=== PATIENT | male | born 2000 | race Caucasian/White ===

== ENCOUNTER → 2024-06-14 14:20 | Outpatient (REF) | payer BC, SELFPAY ==
[2024-06-14 15:47] LABS: % Basophils 0.5 % (0-2); % Eosinophils 1.5 % (0-6); % Immature Granulocytes 0.3 % (0-0.5); % Monocytes 15.5 % (1.7-9.3); % Neutrophils 48.2 % (42.2-75.2); Absolute Eosinophils 0.1 10^3/uL (0-0.7); Absolute Lymphocytes 1.4 10^3/uL (1.2-3.4); Absolute Monocytes 0.6 10^3/uL (0.1-0.6); Absolute Neutrophils 1.9 10^3/uL (1.4-6.5); Hematocrit 41.8 % (39.0-52.0); Hemoglobin 14.1 g/dL (13.0-18.0); Mean Corp Hgb Conc. 33.7 g/dL (33.0-37.0); Mean Corpuscular Hgb 29.5 pg (27.0-31.0); Mean Corpuscular Volume 87.4 fL (80.0-94.0); Mean Platelet Volume 10.7 fL (7.4-10.4); Nucleated Red Blood Cells % 0 % (-); Platelet Count 246 10^3/uL (130-400); Red Blood Cell Count 4.78 10^6/uL (4.70-6.10); Red Cell Dist. Width 12.2 % (11.5-14.5)
[2024-06-14 15:54] LABS: Urine Albumin Negative (Neg - Trace); Urine Bilirubin Negative (Negative); Urine Character Clear (Clear); Urine Color Yellow; Urine Glucose Negative (Negative); Urine Ketone Negative (Negative); Urine Leukocyte Negative (Negative); Urine Nitrite Negative (Negative); Urine Occult Blood 1+ (Negative); Urine Specific Gravity 1.015 (<1.030); Urine Urobilinogen Negative (Neg - 1+)
[2024-06-14 16:12] LABS: ALT (SGPT) 63 U/L (0-50); AST (SGOT) 33 U/L (17-59); Albumin 4.6 g/dl (3.5-5.0); Alkaline Phosphatase 63 U/L (38-126); Blood Urea Nitrogen 14 mg/dl (9-20); Calcium 9.6 mg/dl (8.4-10.2); Carbon Dioxide 29 mmol/L (22-30); Chloride 98 mmol/L (98-107); Glucose 90 mg/dl (70-99); Potassium 4.6 mmol/L (3.5-5.1); Sodium 138 mmol/L (135-145); Total Bilirubin 0.7 mg/dl (0.2-1.3); Total Protein 7.4 g/dl (6.3-8.2); eGFR > 60.00
[2024-06-14 16:28] LABS: Erythrocyte Sed Rate 13 mm/hour (0-20)
[2024-06-14 16:43] LABS: TSH Reflex To Free T4 1.72 uIU/ml (0.47-4.68)
[2024-06-14 16:48] LABS: Urine Squamous Cell 0-2 /LPF (Few)
[2024-06-17 02:43] LABS: ANA, IgG Reflex to HEp-2 None Detected (None Detected)
== END ==
LOC: REG 14:20
PROVIDERS: ATTENDING PHYSICIAN Nurse Practitioner Family
DX: J45.909 Unspecified asthma, uncomplicated (principal); Z87.898 Personal history of other specified conditions; M25.50 Pain in unspecified joint; Z01.89 Encounter for other specified special examinations; M79.643 Pain in unspecified hand; M79.89 Other specified soft tissue disorders; R51.9 Headache, unspecified
CPT/HCPCS: 36415; 80053; 81003; 81015; 84443; 85025; 85652; 86038; 86140; 86430; 86618